=== PATIENT | male | born 1975 | race Caucasian/White ===

== ENCOUNTER 2020-01-31 00:23 | Emergency (ER) | payer SELFPAY ==
[~2020-01-31] VITALS: Ht 180.3 cm; Wt 86.2 kg
[2020-01-31 00:25] VITALS: Ht 180.3 cm; Wt 86.2 kg
[2020-01-31 03:05] VITALS: BP 140/82
== END 2020-01-31 03:05 | disposition home or self-care (01) ==
LOC: ED 00:23
DX: U07.1 COVID-19 (principal); J12.89 Other viral pneumonia